=== PATIENT | female | born 1955 | race Caucasian/White ===

== ENCOUNTER 2017-11-27 18:16 | Emergency (ER) | payer OTHER ==
[~2017-11-27] VITALS: Ht 160 cm; Wt 61.2 kg
[2017-11-27] MEDS ORDERED: PROZAC20 MG PO (18:28)
[2017-11-27] MEDS ORDERED: BUSPIRONE HCL10 MG PO (18:28)
[2017-11-27] MEDS ORDERED: OMEPRAZOLE 20 M20 M1 PO (18:29)
[2017-11-27 18:32] LABS: URINE BILIRUBIN NEGATIVE (Negative); URINE BLOOD NEGATIVE (Negative); URINE CLARITY CLEAR; URINE COLOR YELLOW; URINE GLUCOSE-RANDOM NEGATIVE (Negative); URINE KETONES NEGATIVE (Negative); URINE LEUKOCYTES-REFLEX NEGATIVE (Negative); URINE NITRITE-REFLEX NEGATIVE (Negative); URINE PROTEIN NEGATIVE (Negative); URINE SPECIFIC GRAVITY 1.015 (1.005-1.030); URINE UROBILINOGEN 0.2 E.U./dl (0.2-1.0)
[2017-11-27 18:50] LABS: ABSOLUTE EOSINOPHILS 0.2 thou/uL (0.0-0.7); ABSOLUTE LYMPHOCYTES 3.5 thou/uL (0.8-5.3); ABSOLUTE MONOCYTES 0.6 thou/uL (0.0-1.2); ABSOLUTE NEUTROPHILS 4.2 thou/uL (1.6-8.1); BASOPHILS 0.3 %; EOSINOPHILS 1.9 %; HEMATOCRIT 41.1 % (37.0-47.0); HEMOGLOBIN 14.2 gm/dL (12.0-15.0); MCH 30.3 pg (26.0-34.0); MCHC 34.5 g/dL (28.0-37.0); MONOCYTES 7.5 %; MPV 9.6 fl. (7.2-11.1); NUCLEATED RBCS 0 /100WBC; PLATELET COUNT* 256 thou/uL (150-400); POLYS 49.3 %; RBC 4.67 mil/uL (4.20-5.00); RDW-CV 13.5 % (10.5-14.5); WBC 8.5 thou/uL (4.0-11.0)
[2017-11-27 18:59] LABS: CALCIUM 8.8 mg/dL (8.5-10.1); CREATININE 0.9 mg/dL (0.6-1.3); POTASSIUM 3.8 mmol/L (3.5-5.1)
[2017-11-27 19:04] LABS: ALBUMIN 3.7 g/dL (3.4-5.0); TOTAL BILIRUBIN 0.2 mg/dL (<0.1-1.0); TOTAL PROTEIN 7.6 g/dL (6.4-8.2)
[2017-11-27] MEDS ORDERED: PEPCID40 MG PO (20:04)
[2017-11-27] MEDS ORDERED: CARAFATE 1 GM TA1 GM PO (20:04)
[2017-11-27] MEDS ORDERED: BENTYL 20 MG TA20 M1 PO (20:04)
[2017-11-27 20:13] VITALS: BP 133/44
== END 2017-11-27 20:14 | disposition home or self-care (01) ==
LOC: M.ERS 18:16
PROVIDERS: Nurse Practitioner Family
DX: K27.9 Peptic ulcer, site unspecified, unspecified as acute or chronic, without hemorrhage or perforation (principal); F41.9 Anxiety disorder, unspecified; F32.9 Major depressive disorder, single episode, unspecified; F17.210 Nicotine dependence, cigarettes, uncomplicated; Z88.1 Allergy status to other antibiotic agents; Z90.710 Acquired absence of both cervix and uterus

== ENCOUNTER 2019-01-06 11:23 | Emergency (ER) | payer OTHER ==
[~2019-01-06] VITALS: Ht 160 cm; Wt 61.2 kg
[~2019-01-06 11:23] MED LIST: BENTYL 20 MG TA20 M1 PO; BUSPIRONE HCL10 MG PO; CARAFATE 1 GM TA1 GM PO; OMEPRAZOLE 20 M20 M1 PO; PEPCID40 MG PO; PROZAC20 MG PO
[2019-01-06] MEDS ORDERED: RANITIDINE 150150 M1 PO (11:29)
[2019-01-06] MEDS ORDERED: NORCO 5-325 TA1 EAC1 PO (11:42)
[2019-01-06] MEDS ORDERED: FLEXERIL PO (11:42)
[2019-01-06] MEDS ORDERED: PREDNISONE 20 M20 M1 PO (11:42)
[2019-01-06 11:54] VITALS: BP 124/77
== END 2019-01-06 11:55 | disposition home or self-care (01) ==
LOC: M.ERS 11:23
DX: M54.31 Sciatica, right side (principal); F32.9 Major depressive disorder, single episode, unspecified; M19.90 Unspecified osteoarthritis, unspecified site; F41.9 Anxiety disorder, unspecified; Z90.710 Acquired absence of both cervix and uterus; Z88.1 Allergy status to other antibiotic agents

== ENCOUNTER 2019-03-13 19:51 | Emergency (ER) | payer OTHER ==
[~2019-03-13] VITALS: Ht 157.5 cm; Wt 63.5 kg
[~2019-03-13 19:51] MED LIST changes: +FLEXERIL PO; +NORCO 5-325 TA1 EAC1 PO; +PREDNISONE 20 M20 M1 PO; +RANITIDINE 150150 M1 PO
[2019-03-13] MEDS ORDERED: FLEXERIL PO (19:57)
[2019-03-13] MEDS ORDERED: PAXIL40 MG PO (19:57)
[2019-03-13 20:09] LABS: ABSOLUTE BASOPHILS 0.1 thou/uL (0.0-0.2); ABSOLUTE EOSINOPHILS 0.1 thou/uL (0.0-0.7); ABSOLUTE MONOCYTES 0.7 thou/uL (0.0-1.2); ABSOLUTE NEUTROPHILS 5.8 thou/uL (1.6-8.1); BASOPHILS 0.5 %; EOSINOPHILS 1.4 %; HEMATOCRIT 39.8 % (37.0-47.0); HEMOGLOBIN 13.9 gm/dL (12.0-15.0); LYMPHOCYTES 31.4 %; MCH 29.8 pg (26.0-34.0); MPV 9.3 fl. (7.2-11.1); NUCLEATED RBCS 0 /100WBC; PLATELET COUNT* 298 thou/uL (150-400); POLYS 59.7 %; RBC 4.68 mil/uL (4.20-5.00); RDW-CV 14.2 % (10.5-14.5); WBC 9.6 thou/uL (4.0-11.0)
[2019-03-13 20:18] LABS: CALCIUM 9.3 mg/dL (8.5-10.1); CREATININE 0.8 mg/dL (0.6-1.3); POTASSIUM 4.1 mmol/L (3.5-5.1)
[2019-03-13 20:21] LABS: PROTIME 10.1 Seconds (9.20-11.50)
[2019-03-13 20:29] LABS: ALBUMIN 3.7 g/dL (3.4-5.0); TOTAL BILIRUBIN 0.2 mg/dL (<0.1-1.0); TOTAL PROTEIN 7.9 g/dL (6.4-8.2)
[2019-03-13] MEDS ORDERED: ZOFRAN ODT4 MG PO (23:55)
[2019-03-13] MEDS ORDERED: TYLENOL WITH CO1 TA1 PO (23:55)
[2019-03-14 00:03] VITALS: BP 122/64
[2019-03-14 00:05] LABS: URINE BILIRUBIN NEGATIVE (Negative); URINE BLOOD NEGATIVE (Negative); URINE CLARITY CLEAR; URINE COLOR STRAW; URINE GLUCOSE-RANDOM NEGATIVE (Negative); URINE KETONES NEGATIVE (Negative); URINE LEUKOCYTES-REFLEX NEGATIVE (Negative); URINE NITRITE-REFLEX NEGATIVE (Negative); URINE PROTEIN NEGATIVE (Negative); URINE SPECIFIC GRAVITY <= 1.005 (1.005-1.030); URINE UROBILINOGEN 0.2 E.U./dl (0.2-1.0)
--- NOTE | 2019-03-14 11:27 | EKG ---
[place] [address] ELECTROCARDIOGRAM REPORT Name: ZOILARAMON WEN [id number] Admission: 03/13/19 Attend Phys: Discharge: 03/14/19 Date of : 57 Report #: [id number] THIS REPORT FOR: //name// [facility] ED Test Date: 2019-03-13 Test Time: 19:57:26 Pat Name: RAMON CUMMINGS Department: Room: Gender: F Band Booker: KULDIP : 1955 Requested By: Alexandria Bauer Order Number: [id number] MD: Gustavo Piña Measurements Intervals [place] Rate: 86 P: 59 GA: 142 QRS: 62 QRSD: 90 T: 86 QT: 365 QTc: 437 Interpretive Statements Sinus rhythm Probable left atrial enlargement Nonspecific T abnrm, anterolateral leads No previous ECG available for comparison Electronically Signed On 03-14-2019 11:27:22 CDT by Gustavo Piña [email or web address] <ELECTRONICALLY SIGNED> By: Gustavo Piña MD, [facility] 03/14/19 1127 56 57 Gustavo Piña MD, FACC /EPI
== END 2019-03-14 00:04 | disposition home or self-care (01) ==
LOC: M.ERS 19:51
PROVIDERS: Emergency Medicine
DX: M54.31 Sciatica, right side (principal); R07.2 Precordial pain; F32.9 Major depressive disorder, single episode, unspecified; F41.9 Anxiety disorder, unspecified; F17.210 Nicotine dependence, cigarettes, uncomplicated; Z90.710 Acquired absence of both cervix and uterus; Z88.1 Allergy status to other antibiotic agents

== ENCOUNTER 2020-08-01 08:31 | Observation (INO) | payer MEDICARE ==
[~2020-08-01] VITALS: Ht 160 cm; Wt 66.7 kg
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
[~2020-08-01 08:31] MED LIST changes: +PAXIL40 MG PO; +TYLENOL WITH CO1 TA1 PO; +ZOFRAN ODT4 MG PO
[2020-08-01 08:43] VITALS: BP 142/83
[2020-08-01] MEDS ORDERED: PROZAC40 MG PO (08:48)
[2020-08-01 09:08] LABS: ABSOLUTE BASOPHILS 0.1 thou/uL (0.0-0.2); ABSOLUTE EOSINOPHILS 0.1 thou/uL (0.0-0.7); ABSOLUTE LYMPHOCYTES 2.4 thou/uL (0.8-5.3); ABSOLUTE MONOCYTES 0.5 thou/uL (0.0-1.2); ABSOLUTE NEUTROPHILS 4.7 thou/uL (1.6-8.1); BASOPHILS 0.9 %; EOSINOPHILS 0.9 %; HEMATOCRIT 43.1 % (37.0-47.0); HEMOGLOBIN 14.6 gm/dL (12.0-15.0); MCH 28.5 pg (26.0-34.0); MCHC 33.8 g/dL (28.0-37.0); MCV 84.3 fL (80.0-100.0); MONOCYTES 6.8 %; MPV 9.3 fl. (7.2-11.1); NUCLEATED RBCS 0 /100WBC; PLATELET COUNT* 304 thou/uL (150-400); POLYS 60.4 %; RBC 5.11 mil/uL (4.20-5.00); RDW-CV 15.4 % (10.5-14.5); WBC 7.7 thou/uL (4.0-11.0)
[2020-08-01 09:15] LABS: CALCIUM 8.8 mg/dL (8.5-10.1); CREATININE 0.8 mg/dL (0.6-1.3); POTASSIUM 4.3 mmol/L (3.5-5.1)
[2020-08-01 09:18] LABS: APTT 26.2 Seconds (25.0-31.3); PROTIME 10.3 Seconds (9.20-11.50)
[2020-08-01 09:26] LABS: ALBUMIN 3.9 g/dL (3.4-5.0); MAGNESIUM 2.3 mg/dL (1.8-2.4); TOTAL BILIRUBIN 0.3 mg/dL (<0.1-1.0); TOTAL PROTEIN 8.2 g/dL (6.4-8.2)
[2020-08-01] MEDS ORDERED: HYDROCODON-ACE1 EAC7 PO (10:35)
[2020-08-01 13:56] VITALS: BP 144/69
[2020-08-01 14:20] VITALS: BP 143/66
--- NOTE | 2020-08-01 15:03 | EKG ---
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
--- NOTE | 2020-08-01 15:04 | EKG ---
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
[2020-08-01 16:19] VITALS: BP 122/59
--- NOTE | 2020-08-01 20:06 | 2DMMODE ---
[place] [address] 2 D/M-MODE ECHOCARDIOGRAM Name: RAMON CUMMINGS WEN Room: [address] Poonam Ricci#: [id number] Admission: 08/01/20 Attend Phys: Andres Castillo, Discharge: Date of : 57 Date of Service: 08/01/202005 Report #: [id number] THIS REPORT FOR: cc: Keyanna Goodman Tammy RNP Blick, David R. MD [facility] ~ APPROVED REPORT Study performed: 08/01/2020 15:07:43 EXAM: Comprehensive 2D, Doppler, and color-flow Echocardiogram Patient Location: In-Patient Room #: [facility] Status: routine BSA: 1.70 HR: 67 bpm BP: 140/66 mmHg Rhythm: NSR Other Information Study Quality: Good Indications Chest Pain 2D Dimensions IVSd: 10.61 (7-11mm) LVOT Diam: 21.27 (18-24mm) LVDd: 44.08 mm PWd: 7.95 (7-11mm) Ascending Ao: 27.41 (22-36mm) LVDs: 24.92 (25-40mm) Aortic Root: 27.85 mm Volumes Left Atrial Volume (Systole) LA ESV Index: 28.30 mL/m2 Aortic Valve AoV Peak Bin.: 1.45 m/s AO Peak Gr.: 8.46 mmHg LVOT Max P.57 mmHg AO Mean Gr.: 4.61 mmHg LVOT Mean P.84 mmHg LVOT Max V: 1.07 m/s AO V2 VTI: 29.70 cm LVOT Mean V: 0.60 m/s BEBE (VTI): 3.03 cm2 LVOT V1 VTI: 25.35 [place] [address] 2 D/M-MODE ECHOCARDIOGRAM Name: RAMON CUMMINGS Room: [address]#: [id number] Admission: 08/01/20 Attend Phys: Andres Castillo, Discharge: Date of : 57 Date of Service: 08/01/202005 Report #: [id number] Mitral Valve E/A Ratio: 0.79 MV Decel. Time: 281.78 ms MV E Max Bin.: 0.74 m/s MV PHT: 81.72 ms MVA (PHT): 2.69 cm2 TDI E/Lateral E': 7.40 E/Medial E': 9.25 Medial E' Bin.: 0.08 m/s Lateral E' Bin.: 0.10 m/s Pulmonary Valve PV Peak Bin.: 0.94 m/s PV Peak Gr.: 3.54 mmHg Tricuspid Valve RAP Estimate: 5.00 mmHg TR Peak Gr.: 30.70 mmHg RVSP: 35.00 mmHg PA Pressure: 35.00 mmHg Left Ventricle The left ventricle is normal size. There is normal LV segmental wall motion. There is normal left ventricular wall thickness. Left ventricular systolic function is normal. The left ventricular ejection fraction is within the normal range. LVEF is 55-60%. Grade I - abnormal relaxation pattern. Right Ventricle The right ventricle is normal size. The right ventricular systolic function is normal. Atria The left atrium size is normal. The right atrium size is normal. Aortic Valve The aortic valve is normal in structure. Mild aortic regurgitation. There is no aortic valvular stenosis. Mitral Valve The mitral valve is normal in structure. Mild mitral regurgitation. No evidence of mitral valve stenosis. Tricuspid Valve The tricuspid valve is normal in structure. Mild tricuspid regurgitation. estimated pa pressure 40 [place] [address] 2 D/M-MODE ECHOCARDIOGRAM Name: RAMON CUMMINGS Room: [address]#: [id number] Admission: 08/01/20 Attend Phys: Andres Castillo, Discharge: Date of : 57 Date of Service: 08/01/202005 Report #: [id number] Pulmonic Valve The pulmonary valve is normal in structure. Trace pulmonic regurgitation. Great Vessels The aortic root is normal in size. IVC is normal in size and collapses >50% with inspiration. Pericardium There is no pericardial effusion. <Conclusion> LVEF is 55-60%. Mild aortic regurgitation. Mild mitral regurgitation. Mild tricuspid regurgitation. estimated pa pressure 40 mm Hg <ELECTRONICALLY SIGNED> By: Gustavo Piña MD, [facility] 08/01/202005 05 05 Gustavo Piña MD, FACC /INF
[2020-08-01 20:30] VITALS: BP 125/71
[2020-08-02] VITALS (9 sets, daily range): BP systolic 85–152; BP diastolic 46–84
[2020-08-02 05:31] LABS: CHOLESTEROL 208 mg/dL (<200); HDL CHOLESTEROL 34 mg/dL (>40); LDL CHOLESTEROL 147 mg/dL (<100); TC:HDL 6.1 Ratio (Not establshd); TRIGLYCERIDE 137 mg/dL (<150); VLDL 27 mg/dL (<40)
[2020-08-02 05:41] LABS: SERUM ASSESSMENT CLEAR
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
[2020-08-02 12:16] LABS: AMP/METHAMP Negative (Negative); BARBITURATES Negative (Negative); BENZODIAZEPINES Negative (Negative); COCAINE Negative (Negative); METHADONE Negative (Negative); OPIATES Negative (Negative); PCP Negative (Negative); THC Negative (Negative)
== END 2020-08-02 13:50 | disposition home or self-care (01) ==
LOC: M.ERS 08:31 → M.TBA-ER 11:32 → M.2W 11:32 → M.TBA-ER 11:32 → M.2W 13:46
PROVIDERS: Emergency Medicine Emergency Medical Services; Internal Medicine; Internal Medicine Cardiovascular Disease; ADMIT Internal Medicine; ATTEND Internal Medicine
DX: R07.89 Other chest pain (principal); M54.2 Cervicalgia; Z20.822 Contact with and (suspected) exposure to COVID-19; E05.90 Thyrotoxicosis, unspecified without thyrotoxic crisis or storm; I95.1 Orthostatic hypotension; F32.9 Major depressive disorder, single episode, unspecified; F41.9 Anxiety disorder, unspecified; K21.9 Gastro-esophageal reflux disease without esophagitis; F17.210 Nicotine dependence, cigarettes, uncomplicated; Z88.1 Allergy status to other antibiotic agents; Z90.710 Acquired absence of both cervix and uterus